=== PATIENT | female | born 1960 | race Caucasian/White ===

== ENCOUNTER 2018-07-07 12:33 | Emergency (ER) | payer MEDICARE, OTHER ==
[~2018-07-07] VITALS: Ht 162.6 cm; Wt 86.8 kg
[2018-07-07] MEDS ORDERED: piperacillin/tazo 3.375gm/50ml 50 ML IV ONE (12:45)
[2018-07-07 13:01] LABS: BASOPHILS # (AUTO) 0.1 X10'3 (0-0.2); BASOPHILS % (AUTO) 0.7 % (0-1); EOSINOPHILS % (AUTO) 0.1 % (0-6); HEMATOCRIT 41.9 % (35.0-45.0); HEMOGLOBIN 13.7 g/dl (12.0-16.0); LYMPHOCYTES % (AUTO) 15.2 % (21-51); MEAN CORPUSCULAR HEMOGLOBIN 28.8 PG (27.0-31.0); MEAN CORPUSCULAR HGB CONC 32.7 g/dL (33.0-36.5); MEAN CORPUSCULAR VOLUME 88.1 FL (78-98); MEAN PLATELET VOLUME 8.6 FL (7.4-10.4); MONOCYTES # (AUTO) 0.8 X10'3 (0-0.9); MONOCYTES % (AUTO) 3.8 % (2-12); NEUTROPHILS # (AUTO) 16.1 X10'3 (1.8-7.7); NEUTROPHILS % (AUTO) 80.2 % (42-75); PLATELET COUNT 296 X10'3 (140-440); RED BLOOD COUNT 4.75 X10'6 (4.20-5.60); RED CELL DISTRIBUTION WIDTH 15.5 % (11.5-14.5); WHITE BLOOD COUNT 20.1 X10'3 (4.5-11.0)
[2018-07-07 13:19] LABS: ALANINE AMINOTRANSFERASE 21 U/L (12-78); ALBUMIN 3.4 G/DL (3.4-5.0); ALBUMIN/GLOBULIN RATIO 0.8 (1.1-1.5); ALKALINE PHOSPHATASE 73 IU/L (46-116); ANION GAP 11 (8-16); ASPARTATE AMINO TRANSFERASE 18 U/L (10-37); BILIRUBIN,TOTAL 0.3 MG/DL (0.1-1.0); BLOOD UREA NITROGEN 13 MG/DL (7-18); BUN/CREATININE RATIO 11.5 (6.6-38.0); CALCIUM 9.5 MG/DL (8.5-10.1); CHLORIDE 96 MMOL/L (99-107); CREATININE 1.13 MG/DL (0.40-0.90); GLUCOSE 176 MG/DL (70-104); MAGNESIUM 1.6 MG/DL (1.5-2.4); POTASSIUM 4.3 MMOL/L (3.5-5.1); SODIUM 135 MMOL/L (135-145); TOTAL CARBON DIOXIDE 28.4 MMOL/L (24-32); TOTAL PROTEIN 7.9 G/DL (6.4-8.2); eGFR 50 ML/MIN
[2018-07-07 13:40] LABS: PLATELET ESTIMATE NORMAL; TOTAL CELLS COUNTED 100
--- NOTE | 2018-07-07 13:47 | NUR ---
FACE SHE[facility] TO [facility].
[2018-07-07] MEDS ORDERED: iohexol 300mg/ml 100ml inj. ONE (14:17)
[2018-07-07] MEDS ORDERED: MESSAGE TO NURSING PO NR (14:30)
[2018-07-07 15:25] VITALS: BP 123/74
--- NOTE | 2018-07-07 16:13 | NUR ---
PT going to room 223A at [facility].
--- NOTE | 2018-07-07 16:15 | NUR ---
[facility] called to arrange transport.
--- NOTE | 2018-07-07 16:20 | NUR ---
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 Dispatch will call back with any updates.
== END 2018-07-07 19:19 | disposition short-term general hospital (02) ==
LOC: ER 12:34
DX: K04.7 Periapical abscess without sinus (principal); K12.2 Cellulitis and abscess of mouth; E11.9 Type 2 diabetes mellitus without complications; E05.90 Thyrotoxicosis, unspecified without thyrotoxic crisis or storm; F17.200 Nicotine dependence, unspecified, uncomplicated
CPT/HCPCS: 36415; 70491; 80053; 83735; 85025; 96365; 96366; 99285; J2543; Q9967

== ENCOUNTER 2023-04-08 07:02 | Outpatient (CLI) | payer MEDICARE, OTHER ==
[2023-04-08] VITALS (21 sets, daily range): BP systolic 118–147; BP diastolic 71–79; PULSE 73–87
== END 2023-04-08 23:59 | disposition home or self-care (01) ==
LOC: CARD DIAG 07:02
PROVIDERS: ATTEND Physician Assistant
DX: R55 Syncope and collapse (principal)
CPT/HCPCS: 93660